=== PATIENT | male | born 1945 | race Caucasian/White ===

== ENCOUNTER 2017-09-03 06:00 | Observation (INO) | payer BC, MEDICARE ==
--- NOTE | 2017-09-03 06:36 | ED PDOC ---
HPI: Chest Pain Time Seen by Provider: 09/03/17 06:19 Chief Complaint (Nursing): Chest Pain Chief Complaint (Provider): Chest Pain History Per: Patient History/Exam Limitations: no limitations Onset/Duration Of Symptoms: Hrs (7 hours ago) Current Symptoms Are (Timing): Still Present Additional Complaint(s): 71 yo male with a history of hypertension, hyperlipidemia, and anxiety, presents to the ED complaining of non-radiating chest pain, onset of 7 hours ago. Patient denies any associated with shortness of breath or diaphoresis. He woke up this morning, roughly an hour ago, to go the bathroom and upon returning to bed he felt the pain again. Of note, the patient took 4 baby aspirin prior to arrival. Denies drugs. Past Medical History Reviewed: Historical Data, Nursing Documentation, Vital Signs Vital Signs: Last Vital Signs Temp 97.5 F L 09/03/17 06:15 Pulse 50 L 09/03/17 06:45 Resp 14 09/03/17 06:15 BP 130/82 09/03/17 06:31 Pulse Ox 95 09/03/17 06:45 - Medical History PMH: Anxiety, HTN, Hypercholesterolemia - Surgical History Surgical History: Cholecystectomy, Hernia Repair, Tonsillectomy - Family History Family History: States: Unknown Family Hx - Social History Current smoker - smoking cessation education provided: No Ex-Smoker (has not smoked in the last 12 months): No Alcohol: None Drugs: Denies - Immunization History Hx Tetanus Toxoid Vaccination: No Hx Influenza Vaccination: No - Home Medications Home Medications: Ambulatory Orders Medication Instructions Recorded Aspirin 81 mg PO DAILY 09/26/14 Dicyclomine [Bentyl] 20 mg PO QID PRN #20 tab 09/26/14 Doxazosin [Cardura] 8 mg PO DAILY 09/26/14 Fenofibrate [Fenoglide] 120 mg PO DAILY 09/26/14 Metoprolol Tartrate [Lopressor] 200 mg PO DAILY 09/26/14 Multivit,Iron,Min 5/Folic Acid 1 tab PO DAILY 09/26/14 [Strovite Forte] Omeprazole 20 mg PO DAILY 09/26/14 Ondansetron [Zofran] 4 mg PO Q8H PRN #15 tab 09/26/14 Telmisartan/Hydrochlorothiazid 1 tab PO DAILY 09/26/14 [Telmisartan-Hydrochlorothiazide 25 mg-80 mg] Azithromycin [Zithromax Z-Yasir] 250 mg PO DAILY #1 packet 10/21/15 Fexofenadine/Pseudoephedrine 1 each PO Q12H PRN #30 tab 10/21/15 [Carmen-D 12 Hour Tablet] Fluticasone Propionate [Flonase] 2 actuation NS BID #1 unit 10/21/15 - Allergies Allergies/Adverse Reactions: Allergies Allergy/AdvReac Type Severity Reaction Status Date / Time No Known Allergies Allergy Verified 09/03/17 06:15 Review of Systems ROS Statement: Except As Marked, All Systems Reviewed And Found Negative Constitutional: Negative for: Fever, Sweats Cardiovascular: Positive for: Chest Pain Respiratory: Negative for: Shortness of Breath Physical Exam - Reviewed Nursing Documentation Reviewed: Yes Vital Signs Reviewed: Yes - Physical Exam Appears: Positive for: Well, Non-toxic, No Acute Distress Head Exam: Positive for: ATRAUMATIC, NORMAL INSPECTION, NORMOCEPHALIC Skin: Positive for: Normal Color, Warm, DRY Eye Exam: Positive for: EOMI, Normal appearance, PERRL ENT: Positive for: Normal ENT Inspection Neck: Positive for: Normal, Painless ROM Cardiovascular/Chest: Positive for: Regular Rate, Rhythm. Negative for: Murmur Respiratory: Positive for: Normal Breath Sounds. Negative for: Respiratory Distress Gastrointestinal/Abdominal: Positive for: Normal Exam, Soft. Negative for: Tenderness Back: Positive for: Normal Inspection Extremity: Positive for: Normal ROM. Negative for: Pedal Edema, Deformity Neurologic/Psych: Positive for: Alert, Oriented. Negative for: Motor/Sensory Deficits - ECG ECG: Positive for: Interpreted By Me, Viewed By Me ECG Rhythm: Positive for: Sinus Bradycardia Interpretation Of Abn EKG: t-wave flattening in the inferolateral leads Rate: 50 O2 Sat by Pulse Oximetry: 95 (RA) Pulse Ox Interpretation: Normal Medical Decision Making Medical Decision Making: Time: --06:27 Impression: --Nonspecific chest pain Plan: --ekg --labs troponin I --PTT --PT --chest x-ray two views --cardiac montior Reassess --06:33 Patient with significant cardiac risk factors, will require workup for possible ACS. No old EKG available for comparison. 07:00 Patient to be signed out to Dr. Armstrong pending workup. Scribe Attestation: Documented by Abdelrahman Christina acting as a scribe for Raul Lazo MD. Provider Attestation: All medical record entries made by the Scribe were at my direction and personally dictated by me. I have reviewed the chart and agree that the record accurately reflects my personal performance of the history, physical exam, medical decision making, and the department course for this patient. I have also personally directed, reviewed, and agree with the discharge instructions and disposition. Disposition - Clinical Impression Clinical Impression: Chest pain - Patient ED Disposition Is Patient to be Admitted: Transfer of Care Discussed With : Katelynn Armstrong Doctor Will See Patient In The: ED - Disposition Disposition: Transfer of Care Disposition Time: 07:00 Condition: FAIR Forms: [facility] (French) Patient Signed Over To: Katelynn Armstrong Handoff Comments: pending workup
[2017-09-03 07:10] LABS: BASO % 0.5 % (0.0-2.0); EOS # 0.3 K/uL (0.0-0.7); EOS % 4.4 % (0.0-4.0); HEMOGLOBIN 13.4 g/dL (12.0-18.0); LYMPH # 2.4 K/uL (1.0-4.3); LYMPH % 36.1 % (20.0-40.0); MEAN CELL VOLUME 90.7 fl (80.0-94.0); MEAN CORPUSCULAR HEMOGLOBIN 29.7 pg (27.0-31.0); MEAN CORPUSCULAR HGB CONC 32.7 g/dL (33.0-37.0); MEAN PLATELET VOLUME 8.3 fl (7.2-11.7); MONO # 0.7 K/uL (0.0-0.8); NEUT # 3.2 K/uL (1.8-7.0); NRBC % 0.2 % (0.0-0.0); RBC 4.52 Mil/uL (4.40-5.90); WHITE BLOOD COUNT 6.5 K/uL (4.8-10.8)
[2017-09-03 07:15] LABS: BLOOD UREA NITROGEN 18 mg/dl (9-20); CALCIUM 9.6 mg/dL (8.4-10.2); GFR AFRICAN-AMERICAN > 60; GFR NON-AFRICAN AMERICAN > 60
--- NOTE | 2017-09-03 07:19 | ED PDOC ---
- Laboratory Results Result Diagrams: 09/04/17 05:40 09/04/17 05:30 - ECG O2 Sat by Pulse Oximetry: 95 (RA) Pulse Ox Interpretation: Normal Medical Decision Making Medical Decision Making: Time: 7:00 Patient signed out to me by Dr. Ansari pending labs and radiology. CXR: FINDINGS: LUNGS: No active pulmonary disease. PLEURA: No significant pleural effusion identified. No pneumothorax apparent. CARDIOVASCULAR: Normal. OSSEOUS STRUCTURES: No significant abnormalities. VISUALIZED UPPER ABDOMEN: Normal. OTHER FINDINGS: None. IMPRESSION: No interval acute cardiopulmonary disease appreciated. Scribe Attestation: Documented by Claritza Anderson, acting as a scribe for Katelynn Armstrong MD. Provider Scribe Attestation: All medical record entries made by the Scribe were at my direction and personally dictated by me. I have reviewed the chart and agree that the record accurately reflects my personal performance of the history, physical exam, medical decision making, and the department course for this patient. I have also personally directed, reviewed, and agree with the discharge instructions and disposition. Disposition - Clinical Impression Clinical Impression: Chest pain - POA Present On Arrival: None - Disposition Disposition: Hospitalized as Observation Patient Disposition Time: 10:49 Condition: STABLE
[2017-09-03 07:34] LABS: INR 1.1 (0.9-1.2); PARTIAL THROMBOPLASTIN TIME 29.6 Seconds (25.6-37.1)
--- NOTE | 2017-09-03 09:03 | RAD ---
HISTORY: chest pain COMPARISON: Chest radiographs 10/21/2015. TECHNIQUE: Chest PA and lateral FINDINGS: LUNGS: No active pulmonary disease. PLEURA: No significant pleural effusion identified. No pneumothorax apparent. CARDIOVASCULAR: Normal. OSSEOUS STRUCTURES: No significant abnormalities. VISUALIZED UPPER ABDOMEN: Normal. OTHER FINDINGS: None. IMPRESSION: No interval acute cardiopulmonary disease appreciated.
--- NOTE | 2017-09-03 12:15 | CP.PCM.HP ---
History of Present Illness - History of Present Illness History of Present Illness: 71 yo male with history of HTN, HLD and Anxiety came in because of left sided chest pain non-radiating not associated with nausea or SOB starting last night lasting for a few minutes then spontaneously relieved. Chest pain recurred early this morning causing him to call 911. He was given 4 baby aspirin although pain already was starting to fade away. Patient was brought to ER and placed on chest pain observation. Present on Admission - Present on Admission Any Indicators Present on Admission: No History of DVT/PE: No History of Uncontrolled Diabetes: No Urinary Catheter: No Decubitus Ulcer Present: No Review of Systems - Review of Systems All systems: reviewed and no additional remarkable complaints except (aside from those mentioned above, 14 point system review were negative by me) Past Patient History - Tetanus Immunizations Tetanus Immunization: Unknown - Past Medical History & Family History Pertinent Family History: Father and Mother had CAD and HTN Father and brother had diabetes - Past Social History Smoking Status: Former Smoker Alcohol: Social Drugs: Denies Home Situation {Lives}: With Family - CARDIAC Hx Hypercholesterolemia: Yes Hx Hypertension: Yes - PULMONARY Hx Respiratory Disorders: No - NEUROLOGICAL Hx Neurological Disorder: No - HEENT Hx HEENT Problems: No - RENAL Hx Chronic Kidney Disease: No - ENDOCRINE/METABOLIC Hx Endocrine Disorders: No - HEMATOLOGICAL/ONCOLOGICAL Hx Blood Disorders: No - INTEGUMENTARY Hx Dermatological Problems: No - MUSCULOSKELETAL/RHEUMATOLOGICAL Hx Musculoskeletal Disorders: No - GASTROINTESTINAL Hx Gastrointestinal Disorders: No - GENITOURINARY/GYNECOLOGICAL Hx Prostate Cancer: Yes (had radiation on 2013) - PSYCHIATRIC Hx Anxiety: Yes - SURGICAL HISTORY Hx Surgeries: Yes Hx Cholecystectomy: Yes Hx Herniorrhaphy: Yes Hx Tonsillectomy: Yes - ANESTHESIA Hx Anesthesia: Yes Hx Anesthesia Reactions: No Meds Allergies/Adverse Reactions: Allergies Allergy/AdvReac Type Severity Reaction Status Date / Time No Known Allergies Allergy Verified 09/03/17 06:15 Physical Exam - Constitutional Appears: No Acute Distress, Other (obese) - Head Exam Head Exam: ATRAUMATIC - Eye Exam Eye Exam: absent: Scleral icterus - ENT Exam ENT Exam: Mucous Membranes Moist - Neck Exam Neck exam: Negative for: Meningismus - Respiratory Exam Respiratory Exam: absent: Chest Wall Tenderness, Rales, Rhonchi, Wheezes, Respiratory Distress - Cardiovascular Exam Cardiovascular Exam: REGULAR RHYTHM, +S1, +S2 - GI/Abdominal Exam GI & Abdominal Exam: Soft. absent: Tenderness - Rectal Exam Rectal Exam: Deferred - Extremities Exam Extremities exam: Negative for: calf tenderness, pedal edema - Back Exam Back exam: absent: tenderness - Neurological Exam Neurological exam: Alert, Oriented x3 - Psychiatric Exam Psychiatric exam: Normal Affect - Skin Skin Exam: Dry, Intact Results - Vital Signs Recent Vital Signs: Last Vital Signs Temp 97.5 F L 09/03/17 06:15 Pulse 55 L 09/03/17 09:32 Resp 18 09/03/17 09:32 BP 118/79 09/03/17 09:32 Pulse Ox 98 09/03/17 09:32 - Labs Result Diagrams: 09/03/17 06:45 09/03/17 06:45 Labs: Laboratory Results - last 24 hr 09/03/17 09/03/17 09/03/17 06:45 06:45 06:45 WBC 6.5 RBC 4.52 Hgb 13.4 Hct 41.0 MCV 90.7 MCH 29.7 MCHC 32.7 L RDW 13.0 Plt Count 243 MPV 8.3 Neut % (Auto) 49.0 L Lymph % (Auto) 36.1 Butler % (Auto) 10.0 Eos % (Auto) 4.4 H Baso % (Auto) 0.5 Neut # (Auto) 3.2 Lymph # (Auto) 2.4 Butler # (Auto) 0.7 Eos # (Auto) 0.3 Baso # (Auto) 0.0 PT 12.0 INR 1.1 APTT 29.6 Sodium 144 Potassium 4.4 Chloride 101 Carbon Dioxide 28 Anion Gap 19 BUN 18 Creatinine 1.2 Est GFR ( Amer) > 60 Est GFR (Non-Af Amer) > 60 Random Glucose 104 Calcium 9.6 Troponin I < 0.0120 Assessment & Plan - Assessment and Plan (Free Text) Assessment: 71 yo male with history of HTN, HLD and Anxiety came in because of left sided chest pain non-radiating not associated with nausea or SOB starting last night lasting for a few minutes then spontaneously relieved. Chest pain recurred early this morning causing him to call 911. He was given 4 baby aspirin although pain already was starting to fade away. Patient was brought to ER and placed on chest pain observation. 1. Chest Pain placed on chest pain observation serial Troponin and EKG ASA, BB, statin 2. HTN BP stable continue Carvedilol, Telmisartan, Verapamil 3. HLD continue Fenofibrate 4. DVT prophylaxis Lovenox 40mg SC daily
[2017-09-03] MEDS ORDERED: Verapamil SR 120 MG CApsule PO SCH (12:45)
[2017-09-03] MEDS ORDERED: Donepezil HCl 10 MG ODT PO SCH (22:00)
[2017-09-04 06:00] LABS: BASO % 0.6 % (0.0-2.0); EOS # 0.2 K/uL (0.0-0.7); EOS % 3.7 % (0.0-4.0); HEMOGLOBIN 12.9 g/dL (12.0-18.0); LYMPH # 2.4 K/uL (1.0-4.3); LYMPH % 36.6 % (20.0-40.0); MEAN CELL VOLUME 91.3 fl (80.0-94.0); MEAN CORPUSCULAR HEMOGLOBIN 29.9 pg (27.0-31.0); MEAN CORPUSCULAR HGB CONC 32.7 g/dL (33.0-37.0); MEAN PLATELET VOLUME 7.9 fl (7.2-11.7); MONO # 0.7 K/uL (0.0-0.8); MONO % 10.6 % (0.0-10.0); NEUT # 3.2 K/uL (1.8-7.0); NEUT % 48.5 % (50.0-75.0); NRBC % 0.1 % (0.0-0.0); RBC 4.32 Mil/uL (4.40-5.90); RED CELL DISTRIBUTION WIDTH 13.2 % (11.5-14.5); WHITE BLOOD COUNT 6.6 K/uL (4.8-10.8)
[2017-09-04 06:17] LABS: BLOOD UREA NITROGEN 19 mg/dl (9-20); CALCIUM 9.5 mg/dL (8.4-10.2); GFR AFRICAN-AMERICAN > 60; GFR NON-AFRICAN AMERICAN > 60; HDL CHOLESTEROL 27 MG/DL (30-70)
[2017-09-04 06:28] LABS: LDL CHOLESTEROL 70 mg/dL (0-129)
[2017-09-04] MEDS ORDERED: Multivitamin With Minerals Tab PO SCH (09:00)
[2017-09-04] MEDS ORDERED: Enoxaparin 40 mg Syringe SC SCH (09:00)
[2017-09-04] MEDS ORDERED: Verapamil 120 mg ER Tab PO SCH (11:30)
--- NOTE | 2017-09-04 11:48 | CP.PCM.DIS ---
Provider - Provider Date of Admission: 09/03/17 10:49 Attending physician: Luís Gray MD Time Spent in preparation of Discharge (in minutes): 25 Diagnosis - Discharge Diagnosis (1) Chest pain Status: Acute Comment: patient discharged in stable and improved condition. there was no recurrence of chest pain. Troponins were negative for ischemia (2) HTN (hypertension) Status: Chronic Comment: BP stable however patient was noted to be bradycardic although asymptomatic. Coreg reduced to 12.5mg PO BID. Verapamil recommended to be DC. continue Telmisartan. patient also on Cardura XL for BPH (3) HLD (hyperlipidemia) Status: Chronic Comment: continue Fenofibrate Hospital Course - Lab Results Lab Results: Most Recent Lab Values WBC 6.6 K/uL (4.8-10.8) 09/04/17 05:40 RBC 4.32 Mil/uL (4.40-5.90) L 09/04/17 05:40 Hgb 12.9 g/dL (12.0-18.0) 09/04/17 05:40 Hct 39.4 % (35.0-51.0) 09/04/17 05:40 MCV 91.3 fl (80.0-94.0) 09/04/17 05:40 MCH 29.9 pg (27.0-31.0) 09/04/17 05:40 MCHC 32.7 g/dL (33.0-37.0) L 09/04/17 05:40 RDW 13.2 % (11.5-14.5) 09/04/17 05:40 Plt Count 236 K/uL (130-400) 09/04/17 05:40 MPV 7.9 fl (7.2-11.7) 09/04/17 05:40 Neut % (Auto) 48.5 % (50.0-75.0) L 09/04/17 05:40 Lymph % (Auto) 36.6 % (20.0-40.0) 09/04/17 05:40 [place]kin % (Auto) 10.6 % (0.0-10.0) H 09/04/17 05:40 Eos % (Auto) 3.7 % (0.0-4.0) 09/04/17 05:40 Baso % (Auto) 0.6 % (0.0-2.0) 09/04/17 05:40 Neut # (Auto) 3.2 K/uL (1.8-7.0) 09/04/17 05:40 Lymph # (Auto) 2.4 K/uL (1.0-4.3) 09/04/17 05:40 [place]kin # (Auto) 0.7 K/uL (0.0-0.8) 09/04/17 05:40 Eos # (Auto) 0.2 K/uL (0.0-0.7) 09/04/17 05:40 Baso # (Auto) 0.0 K/uL (0.0-0.2) 09/04/17 05:40 PT 12.0 Seconds (9.8-13.1) 09/03/17 06:45 INR 1.1 (0.9-1.2) 09/03/17 06:45 APTT 29.6 Seconds (25.6-37.1) 09/03/17 06:45 Sodium 141 mmol/l (132-148) 09/04/17 05:30 Potassium 4.0 MMOL/L (3.6-5.0) 09/04/17 05:30 Chloride 100 mmol/L (98-107) 09/04/17 05:30 Carbon Dioxide 27 mmol/L (22-30) 09/04/17 05:30 Anion Gap 18 (10-20) 09/04/17 05:30 BUN 19 mg/dl (9-20) 09/04/17 05:30 Creatinine 1.1 mg/dl (0.8-1.5) 09/04/17 05:30 Est GFR ( Amer) > 60 09/04/17 05:30 Est GFR (Non-Af Amer) > 60 09/04/17 05:30 Random Glucose 106 mg/dL (75-110) 09/04/17 05:30 Calcium 9.5 mg/dL (8.4-10.2) 09/04/17 05:30 Troponin I < 0.0120 ng/mL (0.00-0.120) 09/03/17 22:46 Triglycerides 145 mg/DL (0-149) 09/04/17 05:30 Cholesterol 121 mg/dL (0-199) 09/04/17 05:30 LDL Cholesterol Direct 70 mg/dL (0-129) 09/04/17 05:30 HDL Cholesterol 27 MG/DL (30-70) L 09/04/17 05:30 - Hospital Course Hospital Course: 71 yo male with history of HTN, HLD and Anxiety came in because of left sided chest pain non-radiating not associated with nausea or SOB starting last night lasting for a few minutes then spontaneously relieved. Chest pain recurred early this morning causing him to call 911. He was given 4 baby aspirin although pain already was starting to fade away. Patient was brought to ER and placed on chest pain observation. There was no recurrence of chest pain and serial Troponins were negative for ischemic events Discharge Exam - Head Exam Head Exam: ATRAUMATIC - Eye Exam Eye Exam: absent: Scleral icterus - ENT Exam ENT Exam: Mucous Membranes Moist - Respiratory Exam Respiratory Exam: absent: Rales, Rhonchi, Wheezes, Respiratory Distress - Cardiovascular Exam Cardiovascular Exam: REGULAR RHYTHM, +S1, +S2 - GI/Abdominal Exam GI & Abdominal Exam: Soft. absent: Tenderness - Rectal Exam Rectal Exam: Deferred - Neurological Exam Neurological exam: Alert, Oriented x3 - Psychiatric Exam Psychiatric exam: Normal Affect - Skin Skin Exam: Dry, Intact Discharge Plan - Discharge Medications Prescriptions: Carvedilol [Coreg] 12.5 mg PO BID #60 tab - Follow Up Plan Condition: FAIR Disposition: HOME/ ROUTINE Instructions: Chest Pain (DC) Referrals: Kai Ochoa MD [Family Provider] -
--- NOTE | 2017-09-04 11:56 | CARD ---
APPROVED REPORT EKG Measurement Heart [id number] <Conclusion> Sinus bradycardia Nonspecific T wave abnormality Abnormal ECG
[2017-09-04 12:46] VITALS: BP 120/74; PULSE 59; RESP 18; TEMP 97.8; O2SAT 95
== END 2017-09-04 14:50 | disposition home or self-care (01) ==
LOC: H.ER 06:00 → H.ERHOLD 10:49 → H.TEL 13:55
DX: R07.89 Other chest pain (principal); E78.00 Pure hypercholesterolemia, unspecified; E78.5 Hyperlipidemia, unspecified; I10 Essential (primary) hypertension; N40.0 Benign prostatic hyperplasia without lower urinary tract symptoms; Z79.82 Long term (current) use of aspirin; Z85.46 Personal history of malignant neoplasm of prostate; Z87.891 Personal history of nicotine dependence; Z90.49 Acquired absence of other specified parts of digestive tract; F41.9 Anxiety disorder, unspecified; Z79.899 Other long term (current) drug therapy; R00.1 Bradycardia, unspecified
CPT/HCPCS: 36415; 71046; 80048; 80061; 84484; 85025; 85610; 85730; 93005; 99285; G0378; J1650